=== PATIENT | male | born 1955 | race Caucasian/White ===

== ENCOUNTER 2018-08-20 21:32 | Emergency (ER) | payer OTHER, MEDICARE ==
[~2018-08-20] VITALS: Ht 170.2 cm; Wt 110.7 kg
[2018-08-20 21:49] VITALS: BP 152/78
== END 2018-08-21 00:33 | disposition home or self-care (01) ==
LOC: ED 23:59
DX: R07.9 Chest pain, unspecified (principal); R11.2 Nausea with vomiting, unspecified; E78.5 Hyperlipidemia, unspecified; E11.9 Type 2 diabetes mellitus without complications
CPT/HCPCS: 93005; 99283

== ENCOUNTER 2018-12-27 08:17 | Emergency (ER) | payer OTHER, MEDICARE ==
[~2018-12-27] VITALS: Ht 170.2 cm; Wt 110.1 kg
--- NOTE | 2018-12-27 08:39 | NUR ---
PT CO OF LEFT WRIST PAIN AND WEAKNESS IN THE HAND THAT HAS PROGRESSED THIS AM. PT STATES " I COULDNT LIFT MY HAND TO SHAVE". VS STABLE. PT IS RESTING COMFORTABLE
[2018-12-27] MEDS ORDERED: PRAM0.5T5 PO (08:50)
[2018-12-27] MEDS ORDERED: PRAV20TA2 PO (08:50)
[2018-12-27] MEDS ORDERED: INSU200I4 SC (08:50)
[2018-12-27] MEDS ORDERED: LISI-167 PO (08:50)
[2018-12-27] MEDS ORDERED: METF-688 PO (08:50)
[2018-12-27] MEDS ORDERED: OMEP20CA14 PO (08:50)
[2018-12-27] MEDS ORDERED: METO25TA91 PO (08:50)
[2018-12-27] MEDS ORDERED: ASPI81TA45 PO (08:50)
[2018-12-27] MEDS ORDERED: KETOROLAC 30 MG/1 ML ONE (09:26)
[2018-12-27] MEDS ORDERED: KETOROLAC 30 MG/1 ML IM ONE (09:30)
[2018-12-27] MEDS ORDERED: COLCHICINE 0.6 MG TABLET PO ONE (09:30)
[2018-12-27 09:43] VITALS: BP 109/70
[2018-12-27 10:23] LABS: BASOPHILS # (AUTO) 0.04 x10^3/uL (0-0.1); BASOPHILS % (AUTO) 1 % (0-1); EOSINOPHILS # (AUTO) 0.46 x10^3/uL (0-0.4); EOSINOPHILS % (AUTO) 5 % (1-7); LYMPHOCYTES # (AUTO) 1.77 x10^3/uL (1-3.4); LYMPHOCYTES % (AUTO) 20 % (22-44); MD NO; MEAN CORPUSCULAR HEMOGLOBIN 31.5 pg (27.5-34.5); MEAN CORPUSCULAR HGB CONC 33.7 g/dL (33.2-36.2); MEAN CORPUSCULAR VOLUME 93.6 fL (81-97); MEAN PLATELET VOLUME 7.5 fL (7.4-10.4); MONOCYTES # (AUTO) 0.56 x10^3/uL (0.2-0.8); MONOCYTES % (AUTO) 6 % (2-9); NEUTROPHILS # (AUTO) 6.16 x10^3/uL (1.8-6.8); NEUTROPHILS % (AUTO) 69 % (42-75); PLATELET COUNT 242 x10^3/uL (130-400); RED BLOOD COUNT 5.04 x10^6/uL (4.38-5.82); RED CELL DISTRIBUTION WIDTH 13.8 % (9.4-14.8)
[2018-12-27 10:24] LABS: ANION GAP 9 mmol/L (5-15); CALCIUM 8.4 mg/dL (8.5-10.1); CHLORIDE 110 mmol/L (98-107); CREATININE 0.93 mg/dL (0.7-1.3)
[2018-12-27 10:31] LABS: HCT (SEDRATE) 47.2 % (39.2-51.8)
--- NOTE | 2018-12-27 11:15 | NUR ---
Patient/Caregiver given discharge instructions and they have confirmed that they understand the instructions. Patient ambulatory with steady gait.
== END 2018-12-27 11:19 | disposition home or self-care (01) ==
LOC: ED 11:05
DX: M10.032 Idiopathic gout, left wrist (principal); M10.042 Idiopathic gout, left hand; M13.132 Monoarthritis, not elsewhere classified, left wrist; M13.142 Monoarthritis, not elsewhere classified, left hand; E78.5 Hyperlipidemia, unspecified; E11.9 Type 2 diabetes mellitus without complications
CPT/HCPCS: 29125; 36415; 73110; 80048; 84550; 85025; 85651; 93005; 96372; 99284; J1885

== ENCOUNTER 2019-06-08 09:36 | Emergency (ER) | payer OTHER ==
[~2019-06-08] VITALS: Ht 170.2 cm; Wt 112.3 kg
[~2019-06-08 09:36] MED LIST: ASPI81TA45 PO; INSU200I4 SC; LISI-167 PO; METF-688 PO; METO25TA91 PO; OMEP20CA14 PO; PRAM0.5T5 PO; PRAV20TA2 PO
--- NOTE | 2019-06-08 09:55 | NUR ---
From triage to room at 0950 lab at bedside at 0986
--- NOTE | 2019-06-08 09:57 | NUR ---
PERSISTENT DIZZINESS/LIGHTHEADEDNESS SINCE LAST NIGHT, NO SPINNING, DENIES SOB OR CP/palpitations HX OF SAME-improved with increased hydration hx of htn/dm both well controlled lately VSS/ecg obtained in triage
[2019-06-08 10:16] LABS: BASOPHILS # (AUTO) 0.03 x10^3/uL (0-0.1); BASOPHILS % (AUTO) 0 % (0-1); EOSINOPHILS % (AUTO) 6 % (1-7); LYMPHOCYTES # (AUTO) 1.74 x10^3/uL (1-3.4); LYMPHOCYTES % (AUTO) 21 % (22-44); MD NO; MEAN CORPUSCULAR HEMOGLOBIN 32.1 pg (27.5-34.5); MEAN CORPUSCULAR HGB CONC 33.6 g/dL (33.2-36.2); MEAN CORPUSCULAR VOLUME 95.7 fL (81-97); MEAN PLATELET VOLUME 7.6 fL (7.4-10.4); MONOCYTES # (AUTO) 0.54 x10^3/uL (0.2-0.8); MONOCYTES % (AUTO) 7 % (2-9); NEUTROPHILS # (AUTO) 5.58 x10^3/uL (1.8-6.8); NEUTROPHILS % (AUTO) 67 % (42-75); PLATELET COUNT 263 x10^3/uL (130-400); RED BLOOD COUNT 5.19 x10^6/uL (4.38-5.82); RED CELL DISTRIBUTION WIDTH 13.3 % (9.4-14.8)
[2019-06-08 10:17] LABS: ALBUMIN 3.3 g/dL (3.4-5.0); ANION GAP 4 mmol/L (5-15); CALCIUM 8.7 mg/dL (8.5-10.1); CHLORIDE 111 mmol/L (98-107)
[2019-06-08 10:18] LABS: CREATININE 0.91 mg/dL (0.7-1.3)
--- NOTE | 2019-06-08 10:47 | NUR ---
orthostatic negative 80, 137/71 lying 81, 139/72
--- NOTE | 2019-06-08 10:53 | NUR ---
UA SENT TO LAB AT [address] AT 1052
[2019-06-08 11:00] LABS: ALANINE AMINOTRANSFERASE 50 U/L (12-78); ALBUMIN 3.3 g/dL (3.4-5.0); BILIRUBIN, DIRECT 0.1 mg/dL (0.1-0.2)
[2019-06-08 11:04] LABS: ALKALINE PHOSPHATASE 68 U/L (45-117); BILIRUBIN,INDIRECT 0.4 mg/dL (0.0-2.0); BILIRUBIN,TOTAL 0.5 mg/dL (0.2-1.0); TOTAL PROTEIN 7.2 g/dL (6.4-8.2); TROPONIN I < 0.015 ng/mL (0.000-0.045)
[2019-06-08 11:12] LABS: MICROSCOPIC NOT IND
[2019-06-08 11:25] LABS: CULTURE INDICATED? NO
[2019-06-08 12:05] VITALS: BP 115/64
== END 2019-06-08 12:22 | disposition home or self-care (01) ==
LOC: ED 12:10
DX: R42 Dizziness and giddiness (principal); J32.0 Chronic maxillary sinusitis; I10 Essential (primary) hypertension; E11.9 Type 2 diabetes mellitus without complications; E78.5 Hyperlipidemia, unspecified; M19.90 Unspecified osteoarthritis, unspecified site
CPT/HCPCS: 36415; 70450; 71045; 80048; 80076; 81003; 82040; 83880; 84484; 85025; 93005; 99284

== ENCOUNTER 2020-03-28 13:15 | Outpatient (CLI) | payer OTHER ==
[~2020-03-28 13:15] MED LIST changes: -OMEP20CA14 PO; +OMEP20CA20 PO
[2020-03-28] MEDS ORDERED: FENTANYL PF 100 MCG/2ML ONE (14:43)
[2020-03-28] MEDS ORDERED: MIDAZOLAM 1 MG/ML, 5ML ONE (14:43)
== END 2020-03-28 23:59 | disposition home or self-care (01) ==
LOC: RAD 13:15
PROVIDERS: ATTEND Physician Assistant Surgical
DX: S46.012A Strain of muscle(s) and tendon(s) of the rotator cuff of left shoulder, initial encounter (principal); S46.812A Strain of other muscles, fascia and tendons at shoulder and upper arm level, left arm, initial encounter; M19.012 Primary osteoarthritis, left shoulder; E11.9 Type 2 diabetes mellitus without complications; G47.30 Sleep apnea, unspecified; E66.9 Obesity, unspecified; Z68.35 Body mass index [BMI] 35.0-35.9, adult; Z79.84 Long term (current) use of oral hypoglycemic drugs; Z79.891 Long term (current) use of opiate analgesic; Z79.899 Other long term (current) drug therapy; Z87.891 Personal history of nicotine dependence; Z82.49 Family history of ischemic heart disease and other diseases of the circulatory system; W01.0XXA Fall on same level from slipping, tripping and stumbling without subsequent striking against object, initial encounter; Y93.89 Activity, other specified; Y92.89 Other specified places as the place of occurrence of the external cause; Y99.8 Other external cause status
CPT/HCPCS: 73221; 99156; 99157; J2250; J3010